=== PATIENT | female | born 1995 | race Caucasian/White ===

== ENCOUNTER → 2018-04-07 | Outpatient (REF) | payer OTHER ==
[2018-04-07 22:04] LABS: APPEARANCE, URINE CLOUDY (CLEAR); BACTERIA, URINE AUTO 1+ (NEGATIVE); BILIRUBIN, URINE AUTO NEGATIVE (NEGATIVE); BLOOD, URINE BLOOD 3+ (NEGATIVE); COLOR, URINE YELLOW (YELLOW); GLUCOSE, URINE (UA) AUTO NEGATIVE (NEGATIVE); KETONE, URINE AUTO NEGATIVE (NEGATIVE); LEUKOCYTE ESTERASE, URINE AUTO 3+ (NEGATIVE); NITRITE, URINE AUTO NEGATIVE (NEGATIVE); PROTEIN, URINE AUTO 1+ mg/dL (NEGATIVE); RBC, URINE AUTO TNTC /HPF (0-3); SPECIFIC GRAVITY URINE AUTO 1.014 (1.002-1.035); SQUAMOUS EPITHELIAL CELL UR AU 1 /HPF (0-6); UROBILINOGEN, URINE AUTO 0.2 mg/dL (0.0-2.0); WBC, URINE AUTO TNTC /HPF (0-3)
== END ==
LOC: M LAB REF 04-08 10:33
DX: N39.0 Urinary tract infection, site not specified (principal)

== ENCOUNTER → 2018-11-22 | Outpatient (CLI) | payer OTHER ==
[2018-11-22 13:30] LABS: BASO % 0.3 % (0.0-1.0); EOS % 0.5 % (0.0-3.0); HEMATOCRIT 40.6 % (36.0-47.0); HEMOGLOBIN 13.9 g/dl (12.0-15.5); LYMPH # 1.1 10^3/uL (1.5-6.5); LYMPH % 14.5 % (24.0-44.0); MEAN CORPUSCULAR HEMOGLOBIN 30.2 pg (27.0-33.0); MEAN CORPUSCULAR HGB CONC 34.2 g/dl (32.0-36.5); MEAN CORPUSCULAR VOLUME 88.3 fl (80.0-96.0); MONO # 1.3 10^3/uL (0.0-0.8); MONO % 15.9 % (0.0-5.0); NEUTROPHILS # 5.4 10^3/uL (1.8-7.7); NEUTROPHILS % 68.5 % (36.0-66.0); PLATELET COUNT, AUTOMATED 240 10^3/uL (150-450); WHITE BLOOD COUNT 7.9 10^3/uL (4.0-10.0)
[2018-11-22 13:53] LABS: ALBUMIN 3.6 GM/DL (3.2-5.2); ALT/SGPT 55 U/L (12-78); AMYLASE 57 U/L (25-115); BILIRUBIN,TOTAL 0.3 MG/DL (0.2-1.0); BLOOD UREA NITROGEN 8 MG/DL (7-18); CALCIUM LEVEL 8.6 MG/DL (8.5-10.1); CARBON DIOXIDE LEVEL 25 MEQ/L (21-32); CHLORIDE LEVEL 105 MEQ/L (98-107); CREATININE FOR GFR 0.76 MG/DL (0.55-1.30); GLOMERULAR FILTRATION RATE > 60.0 (>60); GLUCOSE, FASTING 77 MG/DL (70-100); LIPASE 129 U/L (73-393); SODIUM LEVEL 141 MEQ/L (136-145)
--- NOTE | 2018-11-22 14:03 | REP ---
RIGHT UPPER QUADRANT ULTRASOUND: 11/22/2018. Clinical history: Right upper quadrant pain. Findings: There were no prior studies. The liver is homogeneous and without mass, biliary dilatation nor adjacent ascites. No cyst or perihepatic ascites. The gallbladder showed normal wall thickness and no stone, sludge or pericholecystic fluid. Wall thickness is 2 mm. Community Relations Coordinator defined some mild tenderness in the right upper quadrant during scanning of the gallbladder suggesting mild sonographic Garcia's sign. Common duct is 3.4 mm without a filling defect or stone. Pancreas was unremarkable. Right kidney is 11.3 x 4.6 x 3.4 cm. No evidence of any stone or cyst. No hydronephrosis. Impression: 1. Liver, pancreas, right kidney and common duct normal. No biliary dilatation. 2. No sonographic abnormalities in the gallbladder. No stone, wall thickening or pericholecystic fluid. Some mild tenderness on scanning was noted, however. Electronically Signed by Chapin Linder MD 11/22/2018 01:54 P
== END ==
LOC: M LAB 12:55
PROVIDERS: ATTEND Physician Assistant
DX: R10.11 Right upper quadrant pain (principal)

== ENCOUNTER → 2018-11-22 | Outpatient (CLI) | payer OTHER ==
--- NOTE | 2018-11-22 11:13 | REP ---
KUB, ONE VIEW: HISTORY: Abdominal pain. Air is present in small and large intestine. There are no air fluid levels or dilated loops of intestine. There is no pneumoperitoneum. IMPRESSION: Nonspecific bowel gas pattern. Electronically Signed by Bao Mccarthy MD 11/22/2018 11:16 A
== END ==
LOC: M WUC 10:20
PROVIDERS: ATTEND Physician Assistant
DX: R10.11 Right upper quadrant pain (principal)

== ENCOUNTER → 2019-02-23 | Outpatient (REF) | payer OTHER | LOC: M LAB LCGH 16:10 | PROVIDERS: ATTEND Surgery | DX: K82.8 Other specified diseases of gallbladder (principal) ==

== ENCOUNTER → 2022-04-09 | Outpatient (REF) | payer OTHER | LOC: M PLALAB 07:48 | PROVIDERS: ATTEND Specialist | DX: Z34.83 Encounter for supervision of other normal pregnancy, third trimester (principal) ==

== ENCOUNTER → 2022-04-16 | Outpatient (REF) | payer OTHER | LOC: M SFHCWAGY 16:58 | PROVIDERS: ATTEND Obstetrics & Gynecology | DX: Z34.83 Encounter for supervision of other normal pregnancy, third trimester (principal) ==

== ENCOUNTER 2022-05-10 03:44 | Inpatient (IN) | payer OTHER ==
[2022-05-10] VITALS (43 sets, daily range): BP systolic 112–180; BP diastolic 61–102
[~2022-05-10] VITALS: Ht 149.9 cm; Wt 75.7 kg
[2022-05-10] MEDS ORDERED: LACTATED RINGER'S 1000 ML IV STA (04:37)
[2022-05-10] MEDS: LR 1,000 ML IV SCH ×2 (04:40→12:40)
[2022-05-10] MEDS ORDERED: METHYLERGONOVINE MALEATE 0.2 MG/ML VIAL (J2210) IM PRN (04:40)
[2022-05-10] MEDS ORDERED: LIDOCAINE 1% MDV 20ML VIAL INFIL PRN (04:40)
[2022-05-10] MEDS ORDERED: CARBOPROST TROMETHAMINE 250 MCG/ML AMP IM PRN (04:40)
[2022-05-10] MEDS ORDERED: TRANEXAMIC ACID INJection 1,000 MG in NS 100 ML IV PRN (04:40)
[2022-05-10 05:57] LABS: HEMATOCRIT 36.4 % (36.0-47.0); HEMOGLOBIN 12.7 g/dl (12.0-15.5); MEAN CORPUSCULAR HGB CONC 34.9 g/dl (32.0-36.5); MEAN CORPUSCULAR VOLUME 91.7 fl (80.0-96.0); PLATELET COUNT, AUTOMATED 264 10^3/uL (150-450); RED BLOOD COUNT 3.97 10^6/uL (4.00-5.40); WHITE BLOOD COUNT 11.8 10^3/uL (4.0-10.0)
[2022-05-10] MEDS ORDERED: FENTANYL 2MCG/ML ROPIVACAINE 0.2% IN 0.9% NACL 100ML IVBAG As Ordered ONE (06:06)
[2022-05-10] MEDS ORDERED: PRENTAB9 PO (06:15)
[2022-05-10] MEDS ORDERED: PANT20TA6 PO (06:15)
[2022-05-10] MEDS ORDERED: diphenhydrAMINE 50MG/ML VIAL (J1200) IV PRN (06:25)
[2022-05-10] MEDS ORDERED: ONDANSETRON 4MG 2ML VIAL IV PRN (06:25)
[2022-05-10] MEDS ORDERED: EPIDURAL/PCA KEYS XX PRN (06:25)
[2022-05-10] MEDS ORDERED: LR 500 ML IV PRN (06:25)
[2022-05-10] MEDS ORDERED: NALOXONE INJ 0.4MG/1ML VIAL (J2310 PER 1MG) IV PRN (06:25)
[2022-05-10] MEDS ORDERED: ePHEDrine SULFATE 25 MG/5 ML(5MG/ML) SYRINGE IVP PRN (06:25)
[2022-05-10] MEDS: FENTANYL/ROPIVACAINE/NACL BAG 100 ML EPIDURAL SCH ×2 (06:50→16:25)
[2022-05-10 08:55] LABS: HIV 1&2 SCREEN CENTAUR NEGATIVE (NEGATIVE)
[2022-05-10] MEDS: PRENATAL VITAMINS CHEWABLE TABLET PO SCH (09:00)
[2022-05-10] MEDS ORDERED: OXYTOCIN 30 UNITS IN 0.9% NaCl 500ML IV BAG (J2590) As Ordered ONE (12:57)
[2022-05-10] MEDS ORDERED: LR 1,000 ML IV SCH (15:55)
[2022-05-10] MEDS ORDERED: RHOGAM 300 MCG (1500 IU) INJ (J2790) IM SCH (15:55)
[2022-05-10] MEDS ORDERED: ACETAMINOPHEN TAB 650MG DOSE (2X325MG) PO PRN (15:55)
[2022-05-10] MEDS ORDERED: IBUPROFEN 600MG TAB PO PRN (15:55)
[2022-05-10] MEDS ORDERED: OXYTOCIN DRIP 30 UNITS in IV 1 EA IV SCH (15:55)
[2022-05-10] MEDS ORDERED: DIBUCAINE 1% OINTMENT 30GM TOP PRN (15:55)
[2022-05-10] MEDS: ACETAMINOPHEN 500 MG TAB PO PRN (16:38)
[2022-05-10] MEDS: IBUPROFEN 800 MG TAB PO PRN (20:29)
[2022-05-11] MEDS ORDERED: UNRESOLVED CLARIFICATION ENTRY XX SCH (00:01)
[2022-05-11] MEDS: IBUPROFEN 800 MG TAB PO PRN ×3 (05:42→22:39)
[2022-05-11 06:00] VITALS: BP 130/60
[2022-05-11 09:02] LABS: HEMATOCRIT 28.2 % (36.0-47.0); HEMOGLOBIN 9.5 g/dl (12.0-15.5); MEAN CORPUSCULAR HEMOGLOBIN 32.2 pg (27.0-33.0); MEAN CORPUSCULAR HGB CONC 33.7 g/dl (32.0-36.5); MEAN CORPUSCULAR VOLUME 95.6 fl (80.0-96.0); PLATELET COUNT, AUTOMATED 229 10^3/uL (150-450); RED BLOOD COUNT 2.95 10^6/uL (4.00-5.40); WHITE BLOOD COUNT 14.3 10^3/uL (4.0-10.0)
[2022-05-11 09:18] LABS: ALT/SGPT 17 U/L (12-78); BILIRUBIN,TOTAL 0.3 MG/DL (0.2-1.0); GLOMERULAR FILTRATION RATE > 60.0 (>60); LDH LACTATE DEHYDROGENASE 218 U/L (84-246); URIC ACID 5.9 MG/DL (2.6-6.0)
[2022-05-11] MEDS: PRENATAL VITAMINS CHEWABLE TABLET PO SCH (11:27)
[2022-05-11] MEDS: DOCUSATE SODIUM 100MG CAPSULE PO PRN ×2 (11:27→22:38)
[2022-05-11] MEDS: ACETAMINOPHEN 500 MG TAB PO PRN (17:31)
[2022-05-11 18:00] VITALS: BP 132/78
[2022-05-12 06:00] VITALS: BP 126/70
[2022-05-12] MEDS ORDERED: MEASLES,MUMPS,RUBELLA VACCINE INJ (MMR-II) (90707) SC.IMMUN ONE (09:00)
[2022-05-12] MEDS: IBUPROFEN 800 MG TAB PO PRN (09:34)
[2022-05-12] MEDS: PRENATAL VITAMINS CHEWABLE TABLET PO SCH (09:34)
[2022-05-12 11:09] LABS: HEPATITIS C VIRUS ABY INDEX 0.1 INDEX (<0.8)
== END 2022-05-12 12:25 | disposition home or self-care (01) | DRG 560 ==
LOC: M LDO 03:44 → M LDI 04:21 → M OBS 16:03
PROVIDERS: ADMIT Obstetrics & Gynecology; ATTEND Obstetrics & Gynecology
PROC: 10E0XZZ Delivery of Products of Conception, External Approach (ICD-10-PCS; principal; 2022-05-10)
PROC: 0KQM0ZZ Repair Perineum Muscle, Open Approach (ICD-10-PCS; 2022-05-10)
DX: O70.1 Second degree perineal laceration during delivery (principal); Z3A.39 39 weeks gestation of pregnancy; O77.0 Labor and delivery complicated by meconium in amniotic fluid; Z37.0 Single live birth

== ENCOUNTER → 2023-05-12 | Outpatient (CLI) | payer OTHER ==
[~2023-05-12] MED LIST: PANT20TA6 PO; PRENTAB9 PO
[2023-05-12 13:56] LABS: HEMATOCRIT 36.5 % (36.0-47.0); HEMOGLOBIN 12.3 g/dl (12.0-15.5); MEAN CORPUSCULAR HEMOGLOBIN 30.4 pg (27.0-33.0); MEAN CORPUSCULAR HGB CONC 33.7 g/dl (32.0-36.5); MEAN CORPUSCULAR VOLUME 90.3 fl (80.0-96.0); PLATELET COUNT, AUTOMATED 244 10^3/uL (150-450); RED BLOOD COUNT 4.04 10^6/uL (4.00-5.40); WHITE BLOOD COUNT 8.3 10^3/uL (4.0-10.0)
[2023-05-12 15:02] LABS: HIV 1&2 SCREEN NEGATIVE (NEGATIVE)
[2023-05-12 15:10] LABS: HEPATITIS C VIRUS ABY INDEX 0.08 INDEX (<0.8)
[2023-05-12 15:17] LABS: GC DNA AMPLIFICATION NEGATIVE (NEGATIVE)
== END ==
LOC: M PLALAB 11:52
PROVIDERS: ATTEND Advanced Practice Midwife
DX: Z34.81 Encounter for supervision of other normal pregnancy, first trimester (principal)

== ENCOUNTER → 2023-09-23 | Outpatient (CLI) | payer OTHER | LOC: M WHC 16:26 | PROVIDERS: ATTEND Advanced Practice Midwife | DX: Z36.89 Encounter for other specified antenatal screening (principal); Z3A.30 30 weeks gestation of pregnancy ==

== ENCOUNTER → 2023-10-25 | Outpatient (CLI) | payer OTHER ==
[2023-10-25 14:31] LABS: HEMATOCRIT 27.3 % (36.0-47.0); HEMOGLOBIN 8.7 g/dl (12.0-15.5); MEAN CORPUSCULAR HEMOGLOBIN 28.1 pg (27.0-33.0); MEAN CORPUSCULAR HGB CONC 31.9 g/dl (32.0-36.5); MEAN CORPUSCULAR VOLUME 88.1 fl (80.0-96.0); PLATELET COUNT, AUTOMATED 287 10^3/uL (150-450); WHITE BLOOD COUNT 8.6 10^3/uL (4.0-10.0)
== END ==
LOC: M PLALAB 10:30
PROVIDERS: ATTEND Advanced Practice Midwife
DX: Z34.92 Encounter for supervision of normal pregnancy, unspecified, second trimester (principal)

== ENCOUNTER → 2023-10-29 | Outpatient (CLI) | payer OTHER ==
[~2023-10-29] VITALS: Ht 149.9 cm; Wt 70.0 kg
[~2023-10-29] MED LIST changes: +ACETAMINOPHEN 500 MG TAB PO ONE; +IRON SUCROSE 500 MG in NS 250 ML OVER 4 HRS IV ONE; +diphenhydrAMINE 50MG CAP PO ONE
[2023-10-29 10:45] VITALS: BP 140/94; O2SAT 100
[2023-10-29 12:00] VITALS: BP 150/79; O2SAT 98
[2023-10-29 13:00] VITALS: BP 134/83; O2SAT 97
[2023-10-29 15:30] VITALS: BP 140/75; O2SAT 97
== END ==
LOC: M INFU 10:36
PROVIDERS: ATTEND Advanced Practice Midwife
DX: D64.9 Anemia, unspecified (principal); Z88.7 Allergy status to serum and vaccine
CPT/HCPCS: 96365; 96366; J1756

== ENCOUNTER → 2023-11-03 | Outpatient (REF) | payer OTHER ==
[~2023-11-03] MED LIST changes: -ACETAMINOPHEN 500 MG TAB PO ONE; -IRON SUCROSE 500 MG in NS 250 ML OVER 4 HRS IV ONE; -diphenhydrAMINE 50MG CAP PO ONE
== END ==
LOC: M SFHCWAGY 15:16
PROVIDERS: ATTEND Specialist
DX: Z34.83 Encounter for supervision of other normal pregnancy, third trimester (principal)

== ENCOUNTER 2023-11-22 16:02 | Inpatient (IN) | payer OTHER ==
[2023-11-22] VITALS (7 sets, daily range): BP systolic 129–140; BP diastolic 61–85
[~2023-11-22] VITALS: Ht 149.9 cm; Wt 72.2 kg
[2023-11-22] MEDS ORDERED: LACTATED RINGER'S 1000 ML IV STA (16:34)
[2023-11-22] MEDS ORDERED: CARBOPROST TROMETHAMINE 250 MCG/ML AMP IM PRN (16:35)
[2023-11-22] MEDS ORDERED: METHYLERGONOVINE MALEATE 0.2MG/ML 1ML VIAL IM PRN (16:35)
[2023-11-22] MEDS ORDERED: TRANEXAMIC ACID INJection 1,000 MG in NS 100 ML IV PRN (16:35)
[2023-11-22] MEDS ORDERED: LIDOCAINE 1% MDV 20ML VIAL INFIL PRN (16:35)
[2023-11-22] MEDS ORDERED: OXYTOCIN DRIP 30 UNITS in IV 1 EA IV PRN (16:35)
[2023-11-22 17:20] LABS: HEMATOCRIT 34.2 % (36.0-47.0); HEMOGLOBIN 11.2 g/dl (12.0-15.5); MEAN CORPUSCULAR HEMOGLOBIN 28.6 pg (27.0-33.0); MEAN CORPUSCULAR HGB CONC 32.7 g/dl (32.0-36.5); MEAN CORPUSCULAR VOLUME 87.2 fl (80.0-96.0); PLATELET COUNT, AUTOMATED 249 10^3/uL (150-450); RED BLOOD COUNT 3.92 10^6/uL (4.00-5.40); WHITE BLOOD COUNT 8.8 10^3/uL (4.0-10.0)
[2023-11-22] MEDS ORDERED: miSOPROStol 50MCG 1/2 TABLET PO SCH (18:50)
[2023-11-22] MEDS ORDERED: OXYTOCIN DRIP 30 UNITS in IV 1 EA IV SCH (21:40)
[2023-11-23] VITALS (59 sets, daily range): BP systolic 80–168; BP diastolic 40–94
[2023-11-23] MEDS: LR 1,000 ML IV SCH ×2 (09:02→17:02)
[2023-11-23] MEDS ORDERED: EPIDURAL/PCA KEYS XX PRN (11:50)
[2023-11-23] MEDS ORDERED: LR 500 ML IV PRN (11:50)
[2023-11-23] MEDS ORDERED: NALOXONE INJ 0.4MG/1ML VIAL IV PRN (11:50)
[2023-11-23] MEDS ORDERED: diphenhydrAMINE 50MG/ML VIAL IV PRN (11:50)
[2023-11-23] MEDS ORDERED: ONDANSETRON 4MG 2ML VIAL IV PRN ×2 (11:50→19:55)
[2023-11-23] MEDS ORDERED: FENTANYL/ROPIVACAINE/NACL BAG 100 ML EPIDURAL SCH (11:50)
[2023-11-23] MEDS ORDERED: FENTANYL 2MCG/ML ROPIVACAINE 0.2% IN 0.9% NACL 100ML IVBAG As Ordered ONE (11:55)
[2023-11-23] MEDS: ePHEDrine SULFATE 25 MG/5 ML(5MG/ML) SYRINGE IVP PRN ×2 (12:53→13:05)
[2023-11-23] MEDS ORDERED: LR 1,000 ML IV SCH (19:55)
[2023-11-23] MEDS ORDERED: RHOGAM 300MCG (1500IU) INJ IM SCH (19:55)
[2023-11-23] MEDS ORDERED: IBUPROFEN 600MG TAB PO PRN (19:55)
[2023-11-23] MEDS ORDERED: DOCUSATE SODIUM 100MG CAPSULE PO PRN (19:55)
[2023-11-23] MEDS ORDERED: OXYTOCIN DRIP 30 UNITS in IV 1 EA IV SCH (19:55)
[2023-11-23] MEDS ORDERED: ANUSOL HC CREAM 30GM TOP PRN (19:55)
[2023-11-23] MEDS ORDERED: DIBUCAINE 1% OINTMENT 30GM TOP PRN (19:55)
[2023-11-23] MEDS ORDERED: ACETAMINOPHEN 500 MG TAB PO PRN (19:55)
[2023-11-23] MEDS ORDERED: IBUPROFEN 800 MG TAB PO PRN (19:55)
[2023-11-24 06:00] VITALS: BP 118/55; O2SAT 97
[2023-11-24] MEDS: PRENATAL VITAMINS CHEWABLE TABLET PO SCH (08:56)
[2023-11-24] MEDS: ACETAMINOPHEN TAB 650MG DOSE (2X325MG) PO PRN ×2 (09:05→17:27)
[2023-11-24 18:00] VITALS: BP 132/83; O2SAT 98
[2023-11-25 06:00] VITALS: BP 123/81; O2SAT 99
[2023-11-25] MEDS: PRENATAL VITAMINS CHEWABLE TABLET PO SCH (08:52)
[2023-11-25] MEDS ORDERED: MEASLES,MUMPS,RUBELLA VACCINE INJ (MMR-II) SC.IMMUN ONE (09:00)
[2023-11-25] MEDS ORDERED: ACET-683 PO (09:57)
[2023-11-25] MEDS ORDERED: IBUP80TA PO (09:57)
== END 2023-11-25 10:54 | disposition home or self-care (01) | DRG 560 ==
LOC: M LDI 16:02 → M OBS 11-23 21:30
PROVIDERS: ADMIT Advanced Practice Midwife; ATTEND Obstetrics & Gynecology
PROC: 3E0P7GC Introduction of Other Therapeutic Substance into Female Reproductive, Via Natural or Artificial Opening (ICD-10-PCS; 2023-11-22)
PROC: 10E0XZZ Delivery of Products of Conception, External Approach (ICD-10-PCS; principal; 2023-11-23)
PROC: 0HQ9XZZ Repair Perineum Skin, External Approach (ICD-10-PCS; 2023-11-23)
PROC: 10907ZC Drainage of Amniotic Fluid, Therapeutic from Products of Conception, Via Natural or Artificial Opening (ICD-10-PCS; 2023-11-23)
DX: O14.94 Unspecified pre-eclampsia, complicating childbirth (principal); O70.0 First degree perineal laceration during delivery; Z3A.39 39 weeks gestation of pregnancy; Z88.7 Allergy status to serum and vaccine; Z91.040 Latex allergy status; Z37.0 Single live birth

== ENCOUNTER → 2023-11-22 | Outpatient (CLI) | payer OTHER ==
[2023-11-22 12:30] LABS: HEMATOCRIT 35.4 % (36.0-47.0); HEMOGLOBIN 11.3 g/dl (12.0-15.5); MEAN CORPUSCULAR HEMOGLOBIN 28.2 pg (27.0-33.0); MEAN CORPUSCULAR HGB CONC 31.9 g/dl (32.0-36.5); MEAN CORPUSCULAR VOLUME 88.3 fl (80.0-96.0); PLATELET COUNT, AUTOMATED 260 10^3/uL (150-450); RED BLOOD COUNT 4.01 10^6/uL (4.00-5.40)
[2023-11-22 12:42] LABS: TOTAL PROTEIN,RANDOM URINE 47.1 MG/DL (0.0-14.0)
[2023-11-22 12:47] LABS: ALBUMIN 2.6 G/DL (3.2-5.2); ALKALINE PHOSPHATASE 150 U/L (46-116); ALT/SGPT 13 U/L (7.0-40); AST/SGOT 18 U/L (<34); BILIRUBIN,TOTAL 0.4 MG/DL (0.3-1.2); BLOOD UREA NITROGEN 12 MG/DL (9-23); CALCIUM LEVEL 8.7 MG/DL (8.5-10.1); CARBON DIOXIDE LEVEL 25 MMOL/L (20-31); CHLORIDE LEVEL 105 MMOL/L (98-107); CREATININE FOR GFR 0.65 MG/DL (0.55-1.30); GLOMERULAR FILTRATION RATE > 60.0 (>60); GLUCOSE, FASTING 76 MG/DL (60-100); POTASSIUM SERUM 5.1 MMOL/L (3.5-5.1); SODIUM LEVEL 137 MMOL/L (136-145); TOTAL PROTEIN 5.8 G/DL (5.7-8.2)
[2023-11-22 12:48] LABS: CREATININE,RANDOM URINE 116.7 MG/DL
== END ==
LOC: M PLALAB 11:40
PROVIDERS: ATTEND Obstetrics & Gynecology
DX: O16.3 Unspecified maternal hypertension, third trimester (principal); Z3A.00 Weeks of gestation of pregnancy not specified

== ENCOUNTER 2025-01-19 20:06 | Emergency (ER) | payer MEDICAID, OTHER ==
[~2025-01-19] VITALS: Ht 149.9 cm; Wt 57.8 kg
[~2025-01-19 20:06] MED LIST changes: +ACET-683 PO; +IBUP80TA PO
[2025-01-19 20:08] VITALS: TEMP 97.5
[2025-01-19] MEDS: NS (Normal Saline) 0.9% 1,000 ML IV ONE (20:35)
[2025-01-19] MEDS: KETOROLAC 30 MG/ML 1ML VIAL IV ONE (20:49)
[2025-01-19 20:50] LABS: BASO % 0.2 % (0.0-1.0); HEMATOCRIT 43.3 % (36.0-47.0); HEMOGLOBIN 14.6 g/dl (12.0-15.5); LYMPH # 0.9 10^3/uL (1.5-5.0); LYMPH % 7.2 % (24.0-44.0); MEAN CORPUSCULAR HEMOGLOBIN 30.2 pg (27.0-33.0); MEAN CORPUSCULAR HGB CONC 33.7 g/dl (32.0-36.5); MEAN CORPUSCULAR VOLUME 89.5 fl (80.0-96.0); MONO # 0.8 10^3/uL (0.0-0.8); MONO % 6.4 % (2.0-8.0); NEUTROPHILS # 10.7 10^3/uL (1.5-8.5); NEUTROPHILS % 85.7 % (36.0-66.0); PLATELET COUNT, AUTOMATED 257 10^3/uL (150-450); RED BLOOD COUNT 4.84 10^6/uL (4.00-5.40); WHITE BLOOD COUNT 12.4 10^3/uL (4.0-10.0)
[2025-01-19 21:14] LABS: APPEARANCE, URINE HAZY (CLEAR); BACTERIA, URINE AUTO NEGATIVE (NEGATIVE); BILIRUBIN, URINE AUTO NEGATIVE (NEGATIVE); BLOOD, URINE BLOOD 2+ (NEGATIVE); COLOR, URINE YELLOW (YELLOW); GLUCOSE, URINE (UA) AUTO NEGATIVE (NEGATIVE); KETONE, URINE AUTO 2+ mg/dL (NEGATIVE); LEUKOCYTE ESTERASE, URINE AUTO NEGATIVE (NEGATIVE); MUCUS, URINE SMALL (NEGATIVE); NITRITE, URINE AUTO NEGATIVE (NEGATIVE); PROTEIN, URINE AUTO 2+ mg/dL (NEGATIVE); RBC, URINE AUTO 2 /HPF (0-3); SPECIFIC GRAVITY URINE AUTO 1.031 (1.002-1.035); SQUAMOUS EPITHELIAL CELL UR AU 0 /HPF (0-6); UROBILINOGEN, URINE AUTO 0.2 mg/dL (0.0-2.0); WBC, URINE AUTO 0 /HPF (0-3)
[2025-01-19 21:22] LABS: HCG, SERUM QUALITATIVE NEGATIVE (NEGATIVE)
[2025-01-19 21:27] LABS: LIPASE 34 U/L (12-53)
[2025-01-19 21:30] LABS: ALBUMIN 4.4 G/DL (3.2-5.2); ALKALINE PHOSPHATASE 44 U/L (35-104); ALT/SGPT 18 U/L (7.0-40); AST/SGOT 14 U/L (<34); BILIRUBIN,DIRECT 0.2 MG/DL (<0.4); BILIRUBIN,TOTAL 0.9 MG/DL (0.3-1.2); BLOOD UREA NITROGEN 11 MG/DL (9-23); CALCIUM LEVEL 9.4 MG/DL (8.5-10.1); CARBON DIOXIDE LEVEL 24 MMOL/L (20-31); CHLORIDE LEVEL 104 MMOL/L (98-107); CREATININE FOR GFR 0.58 MG/DL (0.55-1.30); GLOMERULAR FILTRATION RATE > 60.0 (>60); GLUCOSE, FASTING 99 MG/DL (60-100); POTASSIUM SERUM 4.1 MMOL/L (3.5-5.1); SODIUM LEVEL 141 MMOL/L (136-145); TOTAL PROTEIN 7.6 G/DL (5.7-8.2)
[2025-01-19] MEDS ORDERED: ISOVUE-370 76% 100ML VIAL As Ordered ONE (21:48)
[2025-01-20] MEDS: MAGNESIUM CITRATE 300ML BTL PO ONE (00:10)
[2025-01-20] MEDS: ONDANSETRON 4MG 2ML VIAL IV ONE (00:12)
[2025-01-20 00:21] VITALS: O2SAT 98
[2025-01-20 00:33] VITALS: BP 125/67
== END 2025-01-20 01:33 | disposition home or self-care (01) ==
LOC: M ED 20:06
DX: K59.00 Constipation, unspecified (principal)
CPT/HCPCS: 74177; 80048; 80076; 81001; 83605; 83690; 84703; 85025; 93005; 93041; 96361; 96374; 96375; 99285; J1885; J2405; Q9967

== ENCOUNTER → 2025-03-26 | Outpatient (CLI) | payer OTHER ==
[2025-03-26 14:07] LABS: URIC ACID 2.8 MG/DL (3.1-7.8)
[2025-03-26 14:09] LABS: LDH LACTATE DEHYDROGENASE 147 U/L (120-246)
[2025-03-26 14:10] LABS: ALT/SGPT 15 U/L (7.0-40); AST/SGOT 12 U/L (<34); BILIRUBIN,TOTAL 0.5 MG/DL (0.3-1.2); CREATININE FOR GFR 0.55 MG/DL (0.55-1.30); GLOMERULAR FILTRATION RATE > 90.0 (>60)
[2025-03-26 14:17] LABS: HEMATOCRIT 38.8 % (36.0-47.0); HEMOGLOBIN 12.9 g/dl (12.0-15.5); MEAN CORPUSCULAR HEMOGLOBIN 30.1 pg (27.0-33.0); MEAN CORPUSCULAR HGB CONC 33.2 g/dl (32.0-36.5); MEAN CORPUSCULAR VOLUME 90.4 fl (80.0-96.0); PLATELET COUNT, AUTOMATED 261 10^3/uL (150-450); RED BLOOD COUNT 4.29 10^6/uL (4.00-5.40); WHITE BLOOD COUNT 7.6 10^3/uL (4.0-10.0)
[2025-03-26 14:39] LABS: CREATININE,RANDOM URINE 119.9 MG/DL
[2025-03-26 14:42] LABS: HIV 1&2 SCREEN NEGATIVE (NEGATIVE)
[2025-03-26 14:51] LABS: HEPATITIS C VIRUS ABY INDEX 0.04 INDEX (<0.8)
[2025-03-26 15:52] LABS: GC DNA AMPLIFICATION NEGATIVE (NEGATIVE)
== END ==
LOC: M PLALAB 09:38
PROVIDERS: ATTEND Obstetrics & Gynecology
DX: Z34.81 Encounter for supervision of other normal pregnancy, first trimester (principal)

== ENCOUNTER → 2025-06-18 | Outpatient (CLI) | payer OTHER ==
[2025-06-18 15:38] LABS: PLATELET COUNT, AUTOMATED 254 10^3/uL (150-450)
[2025-06-18 16:03] LABS: HIV 1&2 SCREEN NEGATIVE (NEGATIVE)
[2025-06-18 16:11] LABS: HEPATITIS C VIRUS ABY INDEX < 0.02 INDEX (<0.8)
[2025-06-18 16:34] LABS: Trichomonas vaginalis (AMP) NOT DETECTED (NEGATIVE)
[2025-06-18 16:58] LABS: GC DNA AMPLIFICATION NEGATIVE (NEGATIVE)
== END ==
LOC: M PLALAB 11:34
PROVIDERS: ATTEND Obstetrics & Gynecology
DX: Z34.82 Encounter for supervision of other normal pregnancy, second trimester (principal)

== ENCOUNTER → 2025-08-14 | Outpatient (CLI) | payer OTHER ==
[2025-08-14 13:36] LABS: PLATELET COUNT, AUTOMATED 262 10^3/uL (150-450)
[2025-08-14 16:17] LABS: ESTIMATED AVERAGE GLUCOSE 88.0 MG/DL (60-110)
== END ==
LOC: M PLALAB 11:58
PROVIDERS: ATTEND Obstetrics & Gynecology
DX: O09.292 Supervision of pregnancy with other poor reproductive or obstetric history, second trimester (principal); Z3A.00 Weeks of gestation of pregnancy not specified

== ENCOUNTER → 2025-09-10 | Outpatient (CLI) | payer OTHER ==
[2025-09-10 15:17] LABS: ALT/SGPT 16 U/L (7.0-40); AST/SGOT 23 U/L (<34); CALCIUM LEVEL 8.5 MG/DL (8.5-10.1); CARBON DIOXIDE LEVEL 24 MMOL/L (20-31); CHLORIDE LEVEL 104 MMOL/L (98-107); CREATININE FOR GFR 0.49 MG/DL (0.55-1.30); GLOMERULAR FILTRATION RATE > 90.0 (>60); POTASSIUM SERUM 4.4 MMOL/L (3.5-5.1); SODIUM LEVEL 137 MMOL/L (136-145)
== END ==
LOC: M PLALAB 12:23
PROVIDERS: ATTEND Nurse Practitioner Family
DX: L29.9 Pruritus, unspecified (principal)

== ENCOUNTER 2025-09-12 07:36 | Outpatient (CLI) | payer OTHER ==
[~2025-09-12] VITALS: Ht 149.9 cm; Wt 65.9 kg
[~2025-09-12 07:36] MED LIST changes: +ALBUTEROL SULFATE 2.5 MG/0.5 ML INH CONCENTRATE NEB SOLN INH PRN; +EPINEPHrine INJ 1 MG/ML 1ML AMP IM PRN; +diphenhydrAMINE 50 MG/ML VIAL IV PRN
[2025-09-12] MEDS: ACETAMINOPHEN 650 MG PO ONE (07:59)
[2025-09-12 08:00] VITALS: BP 123/76; O2SAT 95
[2025-09-12] MEDS: IRON SUCROSE 300 MG in NS 250 ML IV ONE (08:12)
[2025-09-12 10:06] VITALS: BP 130/60; O2SAT 98
== END 2025-09-12 10:10 | disposition home or self-care (01) ==
LOC: M INFU 07:36
PROVIDERS: ATTEND Specialist
DX: O99.013 Anemia complicating pregnancy, third trimester (principal); Z88.7 Allergy status to serum and vaccine; Z91.040 Latex allergy status
CPT/HCPCS: 96365; 96366; J1756

== ENCOUNTER → 2025-10-08 | Outpatient (REF) | payer OTHER ==
[~2025-10-08] MED LIST changes: -ALBUTEROL SULFATE 2.5 MG/0.5 ML INH CONCENTRATE NEB SOLN INH PRN; -EPINEPHrine INJ 1 MG/ML 1ML AMP IM PRN; -diphenhydrAMINE 50 MG/ML VIAL IV PRN
== END ==
LOC: M SFHCWAGY 12:41
PROVIDERS: ATTEND Nurse Practitioner Family
DX: Z3A.37 37 weeks gestation of pregnancy (principal)

== ENCOUNTER → 2025-10-15 | Outpatient (REF) | payer OTHER ==
[2025-10-15 13:35] LABS: PLATELET COUNT, AUTOMATED 261 10^3/uL (150-450)
[2025-10-15 14:00] LABS: LDH LACTATE DEHYDROGENASE 209 U/L (120-246)
[2025-10-15 14:01] LABS: ALT/SGPT 14 U/L (7.0-40); AST/SGOT 25 U/L (<34); CREATININE FOR GFR 0.56 MG/DL (0.55-1.30); GLOMERULAR FILTRATION RATE > 90.0 (>60)
[2025-10-15 16:28] LABS: TOTAL PROTEIN,RANDOM URINE 36.4 MG/DL (0.0-14.0)
== END ==
LOC: M SFHCPLAZ 12:58
PROVIDERS: ATTEND Nurse Practitioner Family
DX: O16.3 Unspecified maternal hypertension, third trimester (principal)

== ENCOUNTER 2025-10-26 08:41 | Inpatient (IN) | payer OTHER ==
[2025-10-26] VITALS (9 sets, daily range): BP systolic 126–140; BP diastolic 69–87
[~2025-10-26] VITALS: Ht 149.9 cm; Wt 69.7 kg
[2025-10-26] MEDS ORDERED: HOME MED LIST COMPLETE! XX SCH (09:55)
[2025-10-26] MEDS ORDERED: LIDOCAINE 1% MDV 20 ML VIAL INFIL PRN (10:00)
[2025-10-26] MEDS ORDERED: OXYTOCIN DRIP 30 UNITS in IV 1 EA IV PRN (10:00)
[2025-10-26] MEDS ORDERED: CARBOPROST TROMETHAMINE 250 MCG/ML AMP IM PRN (10:00)
[2025-10-26] MEDS ORDERED: TRANEXAMIC ACID INJection 1,000 MG in NS 100 ML IV PRN (10:00)
[2025-10-26 10:07] LABS: PLATELET COUNT, AUTOMATED 238 10^3/uL (150-450)
[2025-10-26] MEDS: miSOPROStol 50 MCG 1/2 TABLET PO ONE (10:16)
[2025-10-26 10:57] LABS: HIV 1&2 SCREEN NEGATIVE (NEGATIVE)
[2025-10-26 11:05] LABS: HEPATITIS C VIRUS ABY INDEX 0.05 INDEX (<0.8)
[2025-10-26] MEDS: miSOPROStol 50 MCG 1/2 TABLET PO SCH (14:15)
[2025-10-27] VITALS (38 sets, daily range): BP systolic 106–151; BP diastolic 57–90; O2SAT 98
[2025-10-27] MEDS: OXYTOCIN DRIP 30 UNITS in IV 1 EA IV SCH ×2 (08:07→16:24)
[2025-10-27] MEDS: LR 1,000 ML IV SCH (08:07)
[2025-10-27] MEDS: PRENATAL VITAMINS CHEWABLE TABLET PO SCH (09:00)
[2025-10-27] MEDS ORDERED: CALCIUM CARBONATE 500 MG CHEW U/D PO ONE (10:45)
[2025-10-27] MEDS: CALCIUM CARBONATE 500 MG CHEW U/D PO ONE (10:54)
[2025-10-27] MEDS ORDERED: LR 500 ML IV PRN (11:20)
[2025-10-27] MEDS ORDERED: diphenhydrAMINE 50 MG/ML VIAL IV PRN (11:20)
[2025-10-27] MEDS ORDERED: EPIDURAL/PCA KEYS XX PRN (11:20)
[2025-10-27] MEDS ORDERED: NALOXONE INJ 0.4 MG/1 ML VIAL IV PRN (11:20)
[2025-10-27] MEDS ORDERED: ONDANSETRON 4MG/2ML VIAL IV PRN (11:20)
[2025-10-27] MEDS: FENTANYL/ROPIVACAINE/NACL BAG 100 ML EPIDURAL SCH (12:01)
[2025-10-27] MEDS ORDERED: RHOGAM 300MCG (1500IU) INJ IM SCH (14:25)
[2025-10-27] MEDS ORDERED: IBUPROFEN 800 MG TAB PO PRN (14:25)
[2025-10-27] MEDS ORDERED: IBUPROFEN 600 MG TAB PO PRN (14:25)
[2025-10-27] MEDS ORDERED: DIBUCAINE 1% OINTMENT 30 GM TOP PRN (14:25)
[2025-10-27] MEDS ORDERED: METHYLERGONOVINE MALEATE 0.2 MG TAB PO PRN (14:25)
[2025-10-27] MEDS ORDERED: DOCUSATE SODIUM 100 MG CAPSULE PO PRN (14:25)
[2025-10-27] MEDS ORDERED: ACETAMINOPHEN 500 MG TAB PO PRN (14:25)
[2025-10-27] MEDS ORDERED: ACETAMINOPHEN 325 MG TAB PO PRN (14:25)
[2025-10-27] MEDS ORDERED: METHYLERGONOVINE MALEATE 0.2 MG/ML 1 ML VIAL As Ordered ONE (14:52)
[2025-10-27] MEDS: METHYLERGONOVINE MALEATE 0.2 MG/ML 1 ML VIAL IM PRN (14:55)
[2025-10-27] MEDS ORDERED: OXYTOCIN 30UNITS IN 0.9% NaCl 500ML IV BAG IV ONE (15:11)
[2025-10-28 05:28] VITALS: BP 117/71; O2SAT 98
[2025-10-28] MEDS: CALCIUM CARBONATE 500 MG CHEW U/D PO PRN (05:44)
[2025-10-28] MEDS ORDERED: IBUP600T42 PO (06:46)
[2025-10-28] MEDS ORDERED: ACET-907 PO (06:46)
[2025-10-28 18:00] VITALS: BP 132/80; O2SAT 98
[2025-10-29 05:21] VITALS: BP 121/75; O2SAT 100
[2025-10-29] MEDS: MEASLES,MUMPS,RUBELLA VACCINE INJ (MMR-II) SC.IMMUN ONE (09:35)
== END 2025-10-29 10:16 | disposition home or self-care (01) | DRG 807 ==
LOC: M LDI 08:41 → M OBS 10-27 17:09
PROVIDERS: ADMIT Advanced Practice Midwife; ATTEND Specialist
PROC: 3E0P7GC Introduction of Other Therapeutic Substance into Female Reproductive, Via Natural or Artificial Opening (ICD-10-PCS; 2025-10-26)
PROC: 10E0XZZ Delivery of Products of Conception, External Approach (ICD-10-PCS; principal; 2025-10-27)
PROC: 10907ZC Drainage of Amniotic Fluid, Therapeutic from Products of Conception, Via Natural or Artificial Opening (ICD-10-PCS; 2025-10-27)
DX: O69.81X0 Labor and delivery complicated by cord around neck, without compression, not applicable or unspecified (principal); Z37.0 Single live birth; Z3A.39 39 weeks gestation of pregnancy